=== PATIENT | female | born 1965 | race African-American/Black ===

== ENCOUNTER 2018-04-24 12:42 | Emergency (ER) | payer MEDICAID ==
[~2018-04-24] VITALS: Ht 147.3 cm; Wt 77.2 kg
[~2018-04-24 12:42] MED LIST: IBUPROFEN
[2018-04-24] MEDS ORDERED: SODIUM CHLORIDE 0.9% 1,000 ML IV ONE (13:39)
[2018-04-24 14:38] LABS: CHLORIDE 105 mEq/L (98-107)
[2018-04-24 14:39] LABS: BASOPHILS % 0.4 % (0.0-2.0); EOSINOPHILS % 1.3 % (0.0-5.0); HEMATOCRIT. 39.4 % (36.0-48.0); HEMOGLOBIN. 13.1 g/dL (12.0-16.0); LYMPHOCYTES % 25.5 % (20.0-50.0); MEAN CORPUSCULAR HEMOGLOBIN 26.8 pg (28.0-32.0); MEAN CORPUSCULAR VOLUME 80.6 fL (81.0-99.0); MEAN PLATELET VOLUME 7.9 fl (7.4-10.4); MONOCYTES % 6.5 % (2.0-8.0); NEUTROPHILS % 66.3 % (40.0-76.0); PLATELET 267 x1000/uL (130-400); PROTHROMBIN TIME 10.5 sec (9.1-11.1); RED BLOOD CELL COUNT 4.89 mill/uL (4.2-5.4); RED CELL DISTRIBUTION WIDTH 13.8 % (11.6-14.6)
[2018-04-24] MEDS ORDERED: KETOROLAC 15MG/ML VIAL IV ONE (15:45)
[2018-04-24] MEDS ORDERED: DIPHENHYDRAMINE 50MG/ML VIAL IV ONE (15:45)
[2018-04-24] MEDS ORDERED: METOCLOPRAMIDE HCL 10MG/2ML VIAL IV ONE (15:45)
[2018-04-24 16:16] LABS: CLARITY URINE CLEAR (CLEAR); COLOR URINE YELLOW (YELLOW); KETONES URINE NEGATIVE (NEGATIVE); LEUKOCYTE ESTERASE URINE NEGATIVE (NEGATIVE); NITRITE URINE NEGATIVE (NEGATIVE); OCCULT BLOOD URINE NEGATIVE (NEGATIVE); PH URINE 7.5 (4.5-8.0); PROTEIN URINE NEGATIVE (NEGATIVE); SPECIFIC GRAVITY URINE 1.005 (1.005-1.030); UROBILINOGEN URINE 0.2 E.U./dL (0.2-1.0)
[2018-04-24 17:34] VITALS: BP 136/76
== END 2018-04-24 17:36 | disposition home or self-care (01) ==
LOC: ER 12:42
DX: R51 Headache (principal); Z90.710 Acquired absence of both cervix and uterus; Z88.5 Allergy status to narcotic agent
CPT/HCPCS: 36415; 80053; 81003; 82962; 85025; 85610; 96361; 96374; 96375; 99283; J1200; J1885; J2765; J7030